=== PATIENT | female | born 1995 | race African-American/Black ===

== ENCOUNTER 2016-11-24 15:06 | Emergency (ER) | payer MEDICAID ==
[~2016-11-24] VITALS: Ht 167.6 cm; Wt 63.5 kg
[2016-11-24] MEDS ORDERED: SILVER SULFADIAZINE 1% CREAM 50GM TOP SCH (15:45)
[2016-11-24] MEDS ORDERED: ONDANSETRON 4MG ODT PO ONE (15:45)
[2016-11-24] MEDS ORDERED: HYDROCODONE/ACETAMINOPHEN 5/325MG TABLET PO ONE (15:45)
[2016-11-24] MEDS ORDERED: TETANUS, DIPHTHERIA, PERTUSSIS VAC/PF 0.5ML (>7YR OLD) IM ONE (15:45)
[2016-11-24 16:03] VITALS: BP 125/69
== END 2016-11-24 18:56 | disposition home or self-care (01) ==
LOC: ER 15:06
DX: T25.222A Burn of second degree of left foot, initial encounter (principal); I10 Essential (primary) hypertension; F17.210 Nicotine dependence, cigarettes, uncomplicated; T31.0 Burns involving less than 10% of body surface; X15.2XXA Contact with hotplate, initial encounter; Y93.89 Activity, other specified; Y92.018 Other place in single-family (private) house as the place of occurrence of the external cause
CPT/HCPCS: 90471; 90715; 99284; Q0162; X7700; Z7610